=== PATIENT | female | born 1985 | race Caucasian/White ===

== ENCOUNTER 2020-01-30 04:56 | Inpatient (IN) | payer BC, SELFPAY ==
[2020-01-30] VITALS (170 sets, daily range): BP systolic 85–132; BP diastolic 50–92; PULSE 73–168; RESP 16; TEMP 36.5–37.7; O2SAT 97–100; BMI 30.7
--- NOTE | 2020-01-30 05:23 | LDADM ---
This patient, Anny Lau, was admitted to Labor/Delivery/Recovery 105 on 01/30/20 at 04:56. Plans for labor, pain management and were discussed with patient. Patient/family oriented to hospital policies and general routines including ID bracelet, bed and alarms, visiting hours, pain management, procedures, bathroom and other care routines, personal items, smoking policy, room service/diet and guest tray routines, infant security routines, and visiting hours. Patient/Family are encouraged to report perceived risks to care and to ask questions if they do not understand what they are told or what they should do. See OBIX for further documentation.
[2020-01-30] MEDS: LACTATED RINGERS 1,000 ML 125 ML IV CONT ×4 (05:30→18:23)
[2020-01-30] MEDS: OXYTOCIN 30 UNITS/NS 500 ML 30 UNITS/500 ML BAG IV CONT (05:30)
[2020-01-30 05:37] LABS: Basophils Percent Auto 0.3 % (0.2-1.2); Eosinophils Absolute Auto 0.3 K/mm3 (0-0.3); Eosinophils Percent Auto 2.6 % (0-4.4); Hematocrit 34.2 % (37.0-47.0); Hemoglobin 11.4 g/dL (12.0-15.0); Immature Granulocyte Absolute 0.15 K/mm3 (0.00-0.031); Immature Granulocyte Percent A 1.6 % (0-0.5); Lymphocytes Absolute Auto 2.03 K/mm3 (0.9-3.2); Lymphocytes Percent Auto 21.2 % (18.3-44.2); Mean Corpuscular HGB Conc 33.3 g/dl (32-36); Mean Corpuscular Hemoglobin 30.2 pg (26-34); Mean Corpuscular Volume 90.5 fl (80-100); Mean Platelet Volume 9.9 fl (7.4-10.4); Monocytes Absolute Auto 0.7 K/mm3 (0.1-0.6); Monocytes Percent Auto 7.1 % (2.6-8.5); Neutrophils Absolute Auto 6.4 K/mm3 (1.3-6.7); Neutrophils Percent Auto 67.2 % (45.5-73.1); Platelet Count Result 282 k/mm3 (150-375); Red Blood Count 3.78 M/mm3 (4.2-5.4); Red Cell Distribution Width 14.4 % (11.5-14.5); White Blood Count 9.6 K/mm3 (4.5-10.0)
--- NOTE | 2020-01-30 07:11 | PM.IMHP ---
H&P: HPI History of Present Illness Chief complaint: Induction of Labor Narrative: Anny Lau is a 34 year old female 022 whose last menstrual period was 05/02/2019, EDC is 02/06/2020, presents at 39 weeks gestation for induction of labor. She has an 8 week ultrasound an early visit confirming dates. Her has been uncomplicated. Her cervix is favorable. She agrees to proceed. Review of Systems Review of Systems: All systems reviewed & are unremarkable except as noted in HPI and below PMFSH Family History Family History Father Cerebrovascular accident Family history of hypercholesterolemia Hypertension Neuropathy Social History Social History Smoking status: Never smoker Alcohol intake: current Substance use: never Spiritual care concerns: No Meds Home Medications and Allergies Home Medications Medication Instructions Recorded Confirmed Type PNV cmb#95-ferrous fumarate-FA 1 tablet PO DAILY 01/14/20 01/14/20 History [] Allergies Allergy/AdvReac Type Severity Reaction Status Date / Time No Known Allergies Allergy Verified 01/14/20 13:37 Vital Signs Vital Signs - 24 hr 01/30/20 05:13 01/30/20 05:33 01/30/20 06:01 Temperature 97.7 F Pulse Rate 109 H 99 Blood Pressure 120/80 125/74 01/30/20 06:31 01/30/20 07:01 Temperature Pulse Rate 108 H 92 Blood Pressure 129/81 122/77 Exam Const: General: no acute distress Eyes: General: appearance normal, both eyes and all related structures Neck: Neck: supple and no JVD Thyroid: thyroid normal Resp: Effort & Inspection: normal respiratory effort Auscultation: clear to auscultation bilaterally Cardio: Rate: regular rate Rhythm: regular rhythm GI: Inspection: normal to inspection (Gravid soft uterus) : General: Yes other (Cervix 3/80%/-1. AROM clear. FHTs reassuring) External Female Exam: normal external appearance Skin: General skin exam: no rashes or lesions noted Extrem: General: normal to inspection and no edema Psych: Mental Status: mental status grossly normal Affect: normal affect H&P: Results Labs Labs: Short CBC 01/30/20 Range/Units 05:28 WBC 9.6 (4.5-10.0) K/mm3 Hgb 11.4 L (12.0-15.0) g/dL Hct 34.2 L (37.0-47.0) % Plt Count 282 (150-375) k/mm3 Assessment and Plan Additional Plan Impression: Term with favorable cervix Plan: Medical induction of labor. Spontaneous vaginal delivery is expected. She has an epidural candidate.
--- NOTE | 2020-01-30 08:02 | WPDANESEPPF ---
Anes - Initial Pre Proc Eval Date/Time: 01/30/20 08:02 Surgeon: Gaston Hicks MD Pre Op Diagnosis: Induction of Labor Patient Data Age: 34 Gender: F Height: 1.68 m Weight: 86.5 kg Last Vital Signs Temp 36.5 C 01/30/20 05:13 Pulse 86 01/30/20 08:01 BP 121/74 01/30/20 08:01 Pulse Ox 100 01/30/20 07:58 Allergies Allergy/AdvReac Type Severity Reaction Status Date / Time No Known Allergies Allergy Verified 01/14/20 13:37 Home Medications Medication Instructions Recorded Confirmed Type PNV cmb#95-ferrous fumarate-FA 1 tablet PO DAILY 01/14/20 01/14/20 History [] Laboratory Tests 01/30/20 01/30/20 01/30/20 05:28 05:28 05:28 WBC 9.6 K/mm3 K/mm3 (4.5-10.0) RBC 3.78 M/mm3 L M/mm3 (4.2-5.4) Hgb 11.4 g/dL L g/dL (12.0-15.0) Hct 34.2 % L % (37.0-47.0) MCV 90.5 fl fl (80-100) MCH 30.2 pg pg (26-34) MCHC 33.3 g/dl g/dl (32-36) RDW 14.4 % % (11.5-14.5) Plt Count 282 k/mm3 k/mm3 (150-375) MPV 9.9 fl fl (7.4-10.4) Immature Gran % (Auto) 1.6 % H % (0-0.5) Neut % (Auto) 67.2 % % (45.5-73.1) Lymph % (Auto) 21.2 % % (18.3-44.2) [place] % (Auto) 7.1 % % (2.6-8.5) Eos % (Auto) 2.6 % % (0-4.4) Baso % (Auto) 0.3 % % (0.2-1.2) Lymph # (Auto) 2.03 K/mm3 K/mm3 (0.9-3.2) [place] # (Auto) 0.7 K/mm3 H K/mm3 (0.1-0.6) Eos # (Auto) 0.3 K/mm3 K/mm3 (0-0.3) Baso # (Auto) 0.0 K/mm3 K/mm3 (0.0-0.1) Abs Immat Gran (auto) 0.15 K/mm3 H K/mm3 (0.00-0.031) Absolute Neuts (auto) 6.4 K/mm3 K/mm3 (1.3-6.7) Absolute Nucleated RBC 0.0 K/mm3 K/mm3 (0.0-0.012) Nucleated RBC % 0.0 % % (0.0-0.2) RPR Pending Blood Type O Positive Antibody Screen Negative Patient hx anesthesia problems: none Family hx anesthesia problems: none PMFSH Family History Family History Father Cerebrovascular accident Family history of hypercholesterolemia Hypertension Neuropathy Social History Social History Smoking status: Never smoker Alcohol intake: current Substance use: never Spiritual care concerns: No Anes - Eval Final PreProcedure Day of Procedure 01/30/20 08:02 Patient weight: overweight Heart: regular rate and rhythm Lungs: clear to auscultation and normal air movement Airway: Mallampati scale class II Neurological: alert and oriented Last oral intake: >/= 8 hours ASA classification: II Emergent: no Anesthetic plan: proceed Anesthesia type and monitoring: regional epidural Informed Consent: The patient's anesthetic plan and its attendant risks and benefits were discussed with the patient/family/POA. Questions were solicited and answers provided to the satisfaction of the patient/family/POA.
[2020-01-30 10:24] LABS: Rapid Plasma Reagin Non-Reactive (NonReactive)
--- NOTE | 2020-01-30 11:58 | PM.OBPNVD ---
OB - PN: Subj Subjective Date/time seen: 01/30/20 11:58 cx 5.5 by rn exam fhts reassuring epidural working OB - PN: Obj Data Labs CBC & Chem 7: 01/30/20 05:28 Labs: Laboratory Results - last 24 hr 01/30/20 01/30/20 01/30/20 05:28 05:28 05:28 WBC 9.6 RBC 3.78 L Hgb 11.4 L Hct 34.2 L MCV 90.5 MCH 30.2 MCHC 33.3 RDW 14.4 Plt Count 282 MPV 9.9 Immature Gran % (Auto) 1.6 H Neut % (Auto) 67.2 Lymph % (Auto) 21.2 [place] % (Auto) 7.1 Eos % (Auto) 2.6 Baso % (Auto) 0.3 Lymph # (Auto) 2.03 [place] # (Auto) 0.7 H Eos # (Auto) 0.3 Baso # (Auto) 0.0 Abs Immat Gran (auto) 0.15 H Absolute Neuts (auto) 6.4 Absolute Nucleated RBC 0.0 Nucleated RBC % 0.0 RPR Non-reactive Blood Type O Positive Antibody Screen Negative OB - PN A/P Time Spent With Patient Time: Total time spent is greater than 50% in coordination of care (as documented) at patient's floor/unit and/or counseling patient:
--- NOTE | 2020-01-30 16:22 | P.PNOB_ITS ---
OB - PN: Subj Subjective Date/time seen: 01/30/20 16:22 cx rim fhts reassuring OB - PN: Obj Data Labs CBC & Chem 7: 01/30/20 05:28 Labs: Laboratory Results - last 24 hr 01/30/20 01/30/20 01/30/20 05:28 05:28 05:28 WBC 9.6 RBC 3.78 L Hgb 11.4 L Hct 34.2 L MCV 90.5 MCH 30.2 MCHC 33.3 RDW 14.4 Plt Count 282 MPV 9.9 Immature Gran % (Auto) 1.6 H Neut % (Auto) 67.2 Lymph % (Auto) 21.2 [place] % (Auto) 7.1 Eos % (Auto) 2.6 Baso % (Auto) 0.3 Lymph # (Auto) 2.03 [place] # (Auto) 0.7 H Eos # (Auto) 0.3 Baso # (Auto) 0.0 Abs Immat Gran (auto) 0.15 H Absolute Neuts (auto) 6.4 Absolute Nucleated RBC 0.0 Nucleated RBC % 0.0 RPR Non-reactive Blood Type O Positive Antibody Screen Negative OB - PN A/P Time Spent With Patient Time: Total time spent is greater than 50% in coordination of care (as documented) at patient's floor/unit and/or counseling patient:
[2020-01-30] MEDS: ONDANSETRON INJ 4 MG/2 ML VIAL IV PUSH (18:12)
--- NOTE | 2020-01-30 20:41 | PM.OBPRVD ---
OB - Delivery Note Procedure Delivery date: 01/30/20 Procedure: mil Intrapartal events: None Induction method: AROM Delivery augmentation: pitocin Delivery monitor: external FHT Route of delivery: Episiotomy description: None Laceration description: Perineal - 1st Degree Delivery repair: vicryl Specimen: No Estimated blood loss (mL): 257 Anesthesia type: Epidural Disposition: floor Baby Date of : 01/30/20 Time of : 20:27 Weeks of gestation at delivery: 39 Infant gender: Male Weight (pounds): 8 Weight (ounces): 4 presentation: vertex position: Left Occiput Anterior Placenta delivery description: Spontaneous cord vessel description: 3 Vessels, Nuchal Cord and Loose score one minute: 9 score five minutes: 9
[2020-01-30] MEDS: OXYTOCIN 30 UNITS/NS 500 ML 30 UNITS/500 ML BAG 125 UNITS IV CONT (20:49)
[2020-01-30] MEDS: IBUPROFEN 600 MG TABLET PO (22:07)
[2020-01-30] MEDS: WITCH HAZEL 40 PADS 1 PAD TOPICAL (22:08)
[2020-01-30] MEDS: BENZOCAINE 20% AER SPR (*SP) 56 GM CAN 1 SPRAY TOPICAL (22:08)
[2020-01-31 05:40] LABS: Hematocrit 31.7 % (37.0-47.0); Hemoglobin 10.3 g/dL (12.0-15.0)
[2020-01-31] MEDS: IBUPROFEN 600 MG TABLET PO ×3 (05:48→18:30)
--- NOTE | 2020-01-31 06:56 | PM.DS ---
DS: Admitting Diagnosis Admitting Diagnosis Admitting Diagnosis: term iup DS: Summary Time Spent with Patient Time attestation: Total time spent providing and/or coordinating discharge services: Exam Const: General: no acute distress Eyes: General: appearance normal, both eyes and all related structures Neck: Neck: supple and no JVD Thyroid: thyroid normal Resp: Effort & Inspection: normal respiratory effort Auscultation: clear to auscultation bilaterally Cardio: Rate: regular rate Rhythm: regular rhythm GI: Inspection: non-distended GI Palp: Yes Soft to palpation, No Tenderness to palpation present (GI) and No Guarding due to palpation present (GI) Auscultation: normal bowel sounds : General: Yes bladder normal to palpation External Female Exam: normal external appearance Speculum Exam - Vagina: normal vaginal discharge and No vaginal bleeding Speculum Exam - Cervix: nontender Bimanual exam- vagina & uterus: bladder normal to palpation and No Cervical tenderness present OB/external & speculum: No vaginal bleeding Skin: General skin exam: no rashes or lesions noted Extrem: General: normal to inspection and no edema Psych: Mental Status: mental status grossly normal Affect: normal affect DS: Data Data Completed and Pending Labs on day of discharge: Labs from last 24 hours 01/31/20 01/30/20 04:52 05:28 Hgb 10.3 L Hct 31.7 L RPR Non-reactive Discharge Plan Discharge Attending physician on discharge: Gaston Hicks Discharging Clinician: Gaston Hicks Patient Disposition: Home, Self-Care Activity: may shower, no straining and pelvic rest Diet: heart healthy Patient Instructions: Antibiotic Form Stand Alone Forms: General Discharge Information Follow-up/Referrals: Gaston Hicks MD [Physician] - Discharge Medications: Continued PNV cmb#95-ferrous fumarate-FA [] 28 mg iron- 800 mcg Tablet 1 tablet PO DAILY RF: 0 Date of admission: 01/30/20 04:56 Primary Care Provider: CariJavier Admitting Provider: Gaston Hicks Attending physician on admission: Gaston Hicks
--- NOTE | 2020-01-31 06:56 | PM.OBPNVD ---
OB - PN: Subj Subjective Date/time seen: 01/31/20 06:56 OB - PN: Obj Data Labs CBC & Chem 7: 01/31/20 04:52 Labs: Laboratory Results - last 24 hr 01/30/20 01/31/20 05:28 04:52 Hgb 10.3 L Hct 31.7 L RPR Non-reactive OB - PN A/P Plan day: 1 Plan: routine care Time Spent With Patient Time: Total time spent is greater than 50% in coordination of care (as documented) at patient's floor/unit and/or counseling patient: Time with patient: less than 15 minutes Review of Systems Review of Systems: All systems reviewed & are unremarkable except as noted in HPI and below Exam Const: General: no acute distress Eyes: General: appearance normal, both eyes and all related structures Neck: Neck: supple and no JVD Thyroid: thyroid normal Resp: Effort & Inspection: normal respiratory effort Auscultation: clear to auscultation bilaterally Cardio: Rate: regular rate Rhythm: regular rhythm GI: Inspection: non-distended GI Palp: Yes Soft to palpation, No Tenderness to palpation present (GI) and No Guarding due to palpation present (GI) Auscultation: normal bowel sounds : General: Yes bladder normal to palpation External Female Exam: normal external appearance Speculum Exam - Vagina: normal vaginal discharge and No vaginal bleeding Speculum Exam - Cervix: nontender Bimanual exam- vagina & uterus: bladder normal to palpation and No Cervical tenderness present OB/external & speculum: No vaginal bleeding Skin: General skin exam: no rashes or lesions noted Extrem: General: normal to inspection and no edema Psych: Mental Status: mental status grossly normal Affect: normal affect
[2020-01-31 08:15] VITALS: BP 108/71; PULSE 80; RESP 18; TEMP 37; O2SAT 100
[2020-01-31] MEDS: MULTIVIT/MIN/PREN/FOL AC/IRON TABLET 1 TAB PO (08:29)
[2020-01-31] MEDS: ACETAMINOPHEN 325 MG TABLET 650 MG PO ×2 (08:30→15:11)
--- NOTE | 2020-01-31 14:24 | WPDANLDPN2 ---
Anes-Prog Note L&D Date/Time: 01/31/20 14:24 Comfortable throughout: labor and delivery Neuraxial method: epidural Epidural/Spinal procedure site: tender (heating pad in use) Neuro status: Neuro function grossly intact. Cardiovascular status: normal Respiratory status: normal Airway patency: baseline Mental status: baseline Post-Op hydration status: normal Vital Signs: Last Vital Signs Temp 98.6 F 01/31/20 08:15 Pulse 80 01/31/20 08:15 Resp 18 01/31/20 08:15 BP 108/71 01/31/20 08:15 Pulse Ox 100 01/31/20 08:15 I/O: Intake & Output 01/30/20 01/31/20 01/31/20 23:59 07:59 15:59 Intake Total 2000 Output Total 78 Balance 1922 Patient feedback: Patient satisfied with anesthetic care. states epidural was turned off while laboring because she 'was not feeling anything but then felt everything during delivery
[2020-01-31 18:35] VITALS: BP 107/61; PULSE 83; RESP 16; TEMP 36.8
[2020-02-01] MEDS: IBUPROFEN 600 MG TABLET PO (05:25)
--- NOTE | 2020-02-01 06:46 | PM.OBPNVD ---
OB - PN: Subj Subjective Date/time seen: 02/01/20 06:46 Patient comments: no complaints and pain well controlled baby status: doing well and nursing well OB - PN: Obj Data Labs CBC & Chem 7: 01/31/20 04:52 OB - PN A/P Plan day: 2 Plan: routine care, discharge home and follow up 6 weeks Time Spent With Patient Time: Total time spent is greater than 50% in coordination of care (as documented) at patient's floor/unit and/or counseling patient: Time with patient: less than 15 minutes Review of Systems Review of Systems: All systems reviewed & are unremarkable except as noted in HPI and below Exam Const: General: no acute distress Eyes: General: appearance normal, both eyes and all related structures Neck: Neck: supple and no JVD Thyroid: thyroid normal Resp: Effort & Inspection: normal respiratory effort Auscultation: clear to auscultation bilaterally Cardio: Rate: regular rate Rhythm: regular rhythm GI: Inspection: non-distended GI Palp: Yes Soft to palpation, No Tenderness to palpation present (GI) and No Guarding due to palpation present (GI) Auscultation: normal bowel sounds : General: Yes bladder normal to palpation External Female Exam: normal external appearance Speculum Exam - Vagina: normal vaginal discharge and No vaginal bleeding Speculum Exam - Cervix: nontender Bimanual exam- vagina & uterus: bladder normal to palpation and No Cervical tenderness present OB/external & speculum: No vaginal bleeding Skin: General skin exam: no rashes or lesions noted Extrem: General: normal to inspection and no edema Psych: Mental Status: mental status grossly normal Affect: normal affect
[2020-02-01 08:00] VITALS: BP 115/78; PULSE 71; RESP 18; TEMP 36.8
--- NOTE | 2020-02-01 08:30 | PC.NURSE ---
Patient instructed on viewing the discharge video Mother & Baby Care, The First Two Weeks . Patient was given the opportunity and encouraged to ask questions. Patient verbalized understanding of information shared and has been given the mother/baby guide for home reference.
[2020-02-01] MEDS: TETANUS,DIPHTHERIA,AC PERTUSSIS ADULT (0.5 ML) BOOSTRIX IM (08:31)
[2020-02-02 08:45] VITALS: BP 109/77; PULSE 77; RESP 16; TEMP 37; O2SAT 99
== END 2020-02-01 11:09 | disposition home or self-care (01) | DRG 807 ==
LOC: ANHLDR 05:16 → ANHOB2 22:51
PROVIDERS: Admitting Provider Obstetrics & Gynecology; PCP Physician Assistant; Visit Provider Obstetrics & Gynecology
DX: O69.81X0 Labor and delivery complicated by cord around neck, without compression, not applicable or unspecified (principal); Z37.0 Single live birth; Z3A.39 39 weeks gestation of pregnancy; O70.0 First degree perineal laceration during delivery
CPT/HCPCS: 36415; 85014; 85018; 85025; 86592; 86850; 86900; 86901; 90715; A9270; J2405; J2590; J2795; J7120

== ENCOUNTER 2020-02-18 15:24 | Outpatient (CLI) | payer BC, SELFPAY ==
--- NOTE | ~2020-02-18 | US_ITS ---
EXAMINATION: US venous doppler LE RT EXAM DATE: 02/18/2020 16:16 INDICATION: Right leg swelling. TECHNIQUE: Multiple grayscale, color flow and Doppler images of the right lower extremity deep venous system were obtained and reviewed. There is no prior study for comparison. FINDINGS: The right common femoral, femoral and profunda veins demonstrate normal color flow, respira tory variation, augmentation and compressibility. Compressibility, color flow confirmed within the r ight popliteal, posterior tibial, peroneal, and greater saphenous veins. IMPRESSION: 1. No right lower extremity deep venous thrombosis. Reviewed, dictated and finalized at location A.
== END 2020-02-18 15:25 | disposition home or self-care (01) ==
LOC: ANHIMG 15:28
PROVIDERS: PCP Physician Assistant; Visit Provider Obstetrics & Gynecology
DX: R22.41 Localized swelling, mass and lump, right lower limb (principal)
CPT/HCPCS: 93971

== ENCOUNTER → 2020-04-01 07:54 | Outpatient (CLI) | payer BC, SELFPAY ==
--- NOTE | ~2020-04-01 | XR_ITS ---
EXAMINATION:XR cervical spine min 6V DATE: 04/01/2020 08:25 INDICATION: Neck pain TECHNIQUE: AP, lateral in neutral, flexion, extension, bilateral oblique, lateral swimmers and odonto id views of the cervical spine are provided. COMPARISON: None FINDINGS: Alignment is normal. There is no laxity with flexion or extension. There is straightening o f the cervical spine which can be positional or due to muscular spasm. The odontoid is intact. No fra cture is identified. The vertebral body heights are normal. There is mild loss of intervertebral disc space height at C4-5 and C5-6. Prevertebral soft tissues are normal. IMPRESSION: 1. Mild cervical spondylosis without acute findings. Reviewed, dictated and finalized at location A.
== END ==
DX: S13.4XXA Sprain of ligaments of cervical spine, initial encounter (principal); S16.1XXA Strain of muscle, fascia and tendon at neck level, initial encounter; X58.XXXA Exposure to other specified factors, initial encounter; M47.22 Other spondylosis with radiculopathy, cervical region
CPT/HCPCS: 72052

== ENCOUNTER → 2020-04-14 14:46 | Outpatient (CLI) | payer BC, SELFPAY ==
--- NOTE | ~2020-04-14 | MR_ITS ---
EXAMINATION: MR cervical spine wo con EXAM DATE: 04/14/2020 15:25 INDICATION: Neck pain, bilateral arm and leg numbness/pain. Tree limb fell on neck. TECHNIQUE: Multi-sequential, multiplanar MR images of the cervical spine were obtained without contra st. Axial T2, axial T2 MERGE sequence. Sagittal T1, T2, T2 fat saturation images also obtained. Th ere is no prior study for comparison. FINDINGS: There is mild disc disease C4-7. The vertebral body and disc heights are otherwise well ma intained. The vertebral bodies are aligned in the AP dimension. The spinal cord signal intensity and intrinsic morphology is normal. Cervicomedullary junction is normal in appearance. There are no suspi cious marrow signal abnormalities. Paraspinal soft tissue is unremarkable. There is mild thyromegaly without focal nodule. Level by level evaluation: C2-C3: Disc does not extend beyond the endplate margin. Uncovertebral joint arthropathy: None. Facet joint arthropathy: None. Neural foraminal stenosis: No stenosis. Central canal stenosis: No stenosis. C3-C4: Disc does not extend beyond the endplate margin. Uncovertebral joint arthropathy: Minimal left. Facet joint arthropathy: None. Neural foraminal stenosis: No stenosis. Central canal stenosis: No stenosis. C4-C5: There is a minimal diffuse disc bulge. Uncovertebral joint arthropathy: Mild to moderate left, mild right. Facet joint arthropathy: Minimal bilateral. Neural foraminal stenosis: No stenosis. Central canal stenosis: No stenosis. C5-C6: There is a minimal diffuse disc bulge. Uncovertebral joint arthropathy: Mild bilateral. Facet joint arthropathy: Minimal bilateral. Neural foraminal stenosis: No stenosis. Central canal stenosis: No stenosis. C6-C7: There is a minimal diffuse disc bulge. Uncovertebral joint arthropathy: Mild bilateral. Facet joint arthropathy: Minimal bilateral. Neural foraminal stenosis: Mild left. Central canal stenosis: Minimal. C7-T1: Disc does not extend beyond the endplate margin. Uncovertebral joint arthropathy: None. Facet joint arthropathy: Minimal. Neural foraminal stenosis: No stenosis. Central canal stenosis: No stenosis. IMPRESSION: Mild cervical spondylosis. Reviewed, dictated and finalized at location A. IMPRESSION: Mild cervical spondylosis.
== END ==
DX: S13.4XXA Sprain of ligaments of cervical spine, initial encounter (principal); M54.12 Radiculopathy, cervical region; W20.8XXA Other cause of strike by thrown, projected or falling object, initial encounter; M47.22 Other spondylosis with radiculopathy, cervical region
CPT/HCPCS: 72141

== ENCOUNTER 2021-09-14 16:50 | Outpatient (CLI) | payer BC, SELFPAY ==
--- NOTE | ~2021-09-14 | XR_ITS ---
XR chest 2V DATE: 09/14/2021 17:17 INDICATION: Mid chest pain since Covid infection in early August TECHNIQUE: PA and lateral views COMPARISON: 08/23/2018 2 view chest FINDINGS: Normal heart size. No hilar or mediastinal enlargement. No pulmonary infiltrate or consolid ation, pleural effusion or pulmonary vascular congestion or pneumothorax. Minimal thoracic and lumbar scoliosis. IMPRESSION: No active cardiopulmonary disease Reviewed, dictated and finalized at location B. COLLECTOR
[2021-09-14 17:43] LABS: Basophils Percent Auto 0.5 % (0.2-1.2); Eosinophils Absolute Auto 0.1 K/mm3 (0-0.3); Eosinophils Percent Auto 1.7 % (0-4.4); Hematocrit 40.1 % (37.0-47.0); Hemoglobin 13.7 g/dL (12.0-15.0); Immature Granulocyte Absolute 0.02 K/mm3 (0.00-0.031); Immature Granulocyte Percent A 0.3 % (0-0.5); Lymphocytes Absolute Auto 2.43 K/mm3 (0.9-3.2); Lymphocytes Percent Auto 31.4 % (18.3-44.2); Mean Corpuscular HGB Conc 34.2 g/dl (32-36); Mean Corpuscular Hemoglobin 31.9 pg (26-34); Mean Corpuscular Volume 93.3 fl (80-100); Mean Platelet Volume 9.6 fl (7.4-10.4); Monocytes Absolute Auto 0.8 K/mm3 (0.1-0.6); Monocytes Percent Auto 9.9 % (2.6-8.5); Neutrophils Absolute Auto 4.4 K/mm3 (1.3-6.7); Neutrophils Percent Auto 56.2 % (45.5-73.1); Platelet Count Result 301 k/mm3 (150-375); Red Cell Distribution Width 12.4 % (11.5-14.5); White Blood Count 7.8 K/mm3 (4.5-10.0)
[2021-09-14 17:55] LABS: D Dimer 0.34 ug/mL (<0.48)
[2021-09-14 17:56] LABS: Alanine Aminotransferase 21 U/L (4-35); Albumin Level 4.7 g/dL (3.5-5.1); Alkaline Phosphatase 41 U/L (38-126); Anion Gap 6 mmol/L (8-16); Aspartate Amino Transferase 26 U/L (14-36); Bilirubin,Total 0.4 mg/dL (0.2-1.3); Blood Urea Nitrogen 19 mg/dL (7-17); Calcium 9.3 mg/dL (8.4-10.2); Carbon Dioxide 26 mmol/L (22-30); Chloride 102 mmol/L (98-107); Estimated Glomerular Filt Rate > 60; Glucose 104 mg/dL (65-110); Potassium 4.2 mmol/L (3.4-5.0); Sodium 134 mmol/L (137-145)
== END 2021-09-14 16:51 | disposition home or self-care (01) ==
PROVIDERS: PCP Physician Assistant; Visit Provider Physician Assistant
DX: R07.81 Pleurodynia (principal); Z86.16 Personal history of COVID-19
CPT/HCPCS: 36415; 71046; 80053; 85025; 85380

== ENCOUNTER 2022-07-29 12:02 | Emergency (ER) | payer BC, SELFPAY ==
[2022-07-29 12:18] VITALS: BP 134/98; PULSE 98; RESP 20; TEMP 36.6; O2SAT 100
--- NOTE | 2022-07-29 12:40 | ED.HA ---
HPI - Headache General Chief Complaint: Headache Stated Complaint: headache Time Seen by Provider: 07/29/22 12:42 Source: patient, RN notes reviewed and old records reviewed Mode of arrival: ambulatory Limitations: no limitations History of Present Illness HPI Narrative: 36 year old female presents to the [facility] with complaints of a frontal headache since waking up this morning. Denies fevers. Denies any blurry vision or change in vision. No weakness, no neuro deficits. Walking with a normal gait. Denies any nausea vomiting or diarrhea. Patient does have a sensitivity to light and sound. Denies any history MD elicited complaint: headache Related Data Home Medications Medication Instructions Recorded Confirmed escitalopram oxalate 20 mg tablet 20 mg PO DAILY 07/29/22 07/29/22 Allergies Allergy/AdvReac Type Severity Reaction Status Date / Time No Known Allergies Allergy Verified 01/14/20 13:37 Review of Systems Review of Systems: All systems reviewed & are unremarkable except as noted in HPI and below Constitutional: Constitutional: Reports as per HPI and Reports headache(s) (frontal) Eyes: Eyes: Reports no additional eye complaints ENT: Reports system reviewed and no additional complaints, except as documented Cardiovascular: Cardiovascular: Reports no additional cardiovascular complaints, Denies chest pain and Denies dyspnea Respiratory: Respiratory: Reports no additional respiratory complaints, Denies chest congestion, Denies cough and Denies dyspnea Gastrointestinal: Gastrointestinal: Reports no additional gastrointestinal complaints, Denies abdominal pain, Denies nausea and Denies vomiting Musculoskeletal: Musculoskeletal: Reports no additional musculoskeletal complaints Integumentary/Breasts: Skin/Breast: Reports system reviewed and no additional complaints, except as docu Neurologic: Reports system reviewed and no additional complaints, except as documented Psychiatric: Psychiatric: Reports no additional psychiatric complaints Allergic/Immunologic: Allergic/Immunologic: Reports no additional allergic/immunologic complaints [facility] Family History Family History Father Cerebrovascular accident Family history of hypercholesterolemia Hypertension Neuropathy Social History Social History Smoking status: Never smoker Alcohol intake: current Substance use: never Spiritual care concerns: No Comments At the time of my signature, I reviewed and agree with the nursing past medical, surgical, social, and family history. There is no relevant family history pertinent to the patient complaint. Exam Const: General: cooperative, healthy appearing, well developed, alert, in distress mild (pain), uncomfortable, well groomed and well nourished Nutritional Appearance: well nourished Orientation/consciousness: patient oriented x3 Limitations: no limitations HENMT: Head: normal to inspection Ears: hearing grossly normal bilaterally and external ears normal Face/Nose/Sinus: Normal external nose present, Normal nares present, Normal nasal mucous membranes and turbinates present and normal facial exam Face and sinus: normal facial exam Mouth: Yes Normal oral and palatal mucosa present, Yes lip normal and Yes moist mucous membranes Throat: posterior oropharynx normal and uvula midline Eyes: General: appearance normal, both eyes and all related structures Visual Lopes: normal visual lopes by confrontation Alignment and Position: alignment normal Periorbital: periorbital findings normal Eyelids: eyelids normal Conjunctivae: conjunctivae normal Sclera: sclerae normal Cornea: corneas normal Pupils: Equal, round and reactive pupils present and Pupils normal by confrontation EOM: EOMs intact bilaterally Neck: Neck: normal visual inspection, full ROM, no lymphadenopathy and no meninge
== END 2022-07-29 13:37 | disposition home or self-care (01) ==
PROVIDERS: Emergency Provider Nurse Practitioner; PCP Physician Assistant
DX: R51.9 Headache, unspecified (principal); Z20.822 Contact with and (suspected) exposure to COVID-19
CPT/HCPCS: 87426; 87804; 99213; C9803; G0463

== ENCOUNTER 2022-07-29 17:06 | Emergency (ER) | payer BC, SELFPAY ==
--- NOTE | ~2022-07-29 | CT_ITS ---
EXAMINATION: CT brain wo con DATE: 07/29/2022 20:40 INDICATION: Acute headache. TECHNIQUE: Computed tomography (CT) of the head was performed without intravenous contrast. The mA wa s adjusted according to patient size. Iterative reconstruction technique was employed. The dose-lengt h product was 605.33 mGy-cm. COMPARISON: None FINDINGS: There is no intracranial hemorrhage, acute infarction, or abnormal intracranial mass lesion . The ventricles are normal in size. The orbits are normal. There is mild mucosal thickening in the p aranasal sinuses. The mastoid air cells are normal. IMPRESSION: 1. Normal brain. Reviewed, dictated and finalized at location A. [employer] IMPRESSION: 1. Normal brain.
[2022-07-29 17:23] VITALS: BP 143/97; PULSE 101; RESP 16; TEMP 37.2; O2SAT 100
--- NOTE | 2022-07-29 19:51 | PC.NURSE ---
pt c/o little x 12 hours states she went to urgent care and was prescribed fioricet and it is not working. also c/o nausea.
--- NOTE | 2022-07-29 19:57 | ED.HA ---
HPI - Headache General Chief Complaint: Headache Stated Complaint: GEORGE NEG COVID FLU Time Seen by Provider: 07/29/22 19:48 Source: patient, RN notes reviewed and old records reviewed Mode of arrival: ambulatory Limitations: no limitations History of Present Illness HPI Narrative: This is a 36 year old female who presents for evaluation of acute headache. She reports she developed headache at 3-4 am this morning. She reports her head started suddenly and it was severe. She reports her headache was 10/10 at onset but it has gotten worse throughout the day. She develop associated nausea 2 hours ago. Her headache is worse with light, sound and movement. She was evaluated at [facility] hours ago and she was prescribed fiorcet. She took a dose at 2 pm but she reports no relief. She took tylenol last night for her headache. She denies history of migraines. She is reporting 1 week of sinus congestion. Related Data Home Medications Medication Instructions Recorded Confirmed escitalopram oxalate 20 mg tablet 20 mg PO DAILY 07/29/22 07/29/22 Allergies Allergy/AdvReac Type Severity Reaction Status Date / Time No Known Allergies Allergy Verified 01/14/20 13:37 Review of Systems Review of Systems: All systems reviewed & are unremarkable except as noted in HPI and below Constitutional: Constitutional: Denies fatigue and Denies fever(s) Eyes: Eyes: Denies blurry vision and Reports photophobia ENT: Reports nasal congestion and Denies sinus pressure Cardiovascular: Cardiovascular: Denies chest pain, Denies rapid heart rate, Denies leg edema and Denies dyspnea Respiratory: Respiratory: Denies hemoptysis and Denies dyspnea Gastrointestinal: Gastrointestinal: Denies abdominal pain, Denies melena and Reports nausea Musculoskeletal: Musculoskeletal: Denies numbness Neurologic: Denies Abnormal speech present, Reports headache(s), Denies focal weakness and Denies numbness Endocrine: Endocrine: Denies fatigue [facility] Past Medical History Medical History (Updated 07/30/22 @ 00:00 by Alecia Spring) Anxiety Depression Family History Family History Father Cerebrovascular accident Family history of hypercholesterolemia Hypertension Neuropathy Social History Social History Smoking status: Never smoker Alcohol intake: current Substance use: never Spiritual care concerns: No Exam Const: General: alert Nutritional Appearance: well nourished Orientation/consciousness: patient oriented x3 Limitations: no limitations Other: patient laying in dark room covering her eyes HENMT: Head: normal to inspection Ears: external ears normal and TM's normal bilaterally Face/Nose/Sinus: Normal external nose present Face and sinus: normal facial exam Eyes: Conjunctivae: conjunctivae normal Pupils: Equal, round and reactive pupils present Direct Ophthalmoscopy: photophobia Neck: Neck: normal visual inspection Chest: Chest palpation & inspection: normal inspection of the chest Resp: Effort & Inspection: normal respiratory effort Auscultation: clear to auscultation bilaterally Cardio: Rate: regular rate Rhythm: regular rhythm Heart sounds: no murmurs GI: GI Palp: Yes Soft to palpation, No Tenderness to palpation present (GI), No Guarding due to palpation present (GI) and No Rigid due to palpation Auscultation: normal bowel sounds Skin: General skin exam: normal color Rashes: no rashes Wounds: no wounds Neuro: General: patient oriented x3, moves all extremities and CN's II-XI intact bilaterally Cranial nerves: Yes Nystagmus not present Speech: normal speech Gait exam (Neuro): Normal gait present Extrem: General: normal to inspection Psych: Mental Status: mental status grossly normal Affect: normal affect Attitude: cooperative Course Reevaluation(s) Reevaluation #1: Patient
[2022-07-29] MEDS: SODIUM CHLORIDE 0.9% IV 1,000 ML 999 ML IV CONT ×2 (20:13→21:22)
[2022-07-29] MEDS: METOCLOPRAMIDE HCL INJ 10 MG/2 ML VIAL IV PUSH (20:16)
[2022-07-29] MEDS: diphenhydrAMINE HCl INJ 50 MG/ML VIAL 25 MG IV PUSH (20:16)
[2022-07-29] MEDS: KETOROLAC 30 MG/ML VIAL (*BKC) IV PUSH (20:17)
[2022-07-29 20:18] LABS: Basophils Percent Auto 0.3 % (0.2-1.2); Eosinophils Absolute Auto 0.2 K/mm3 (0-0.3); Eosinophils Percent Auto 2.6 % (0-4.4); Hematocrit 39.9 % (37.0-47.0); Hemoglobin 13.2 g/dL (12.0-15.0); Immature Granulocyte Absolute 0.03 K/mm3 (0.00-0.031); Immature Granulocyte Percent A 0.3 % (0-0.5); Lymphocytes Absolute Auto 3.33 K/mm3 (0.9-3.2); Lymphocytes Percent Auto 37.9 % (18.3-44.2); Mean Corpuscular HGB Conc 33.1 g/dl (32-36); Mean Corpuscular Hemoglobin 30.6 pg (26-34); Mean Corpuscular Volume 92.6 fl (80-100); Mean Platelet Volume 8.8 fl (7.4-10.4); Monocytes Absolute Auto 0.6 K/mm3 (0.1-0.6); Monocytes Percent Auto 6.6 % (2.6-8.5); Neutrophils Absolute Auto 4.6 K/mm3 (1.3-6.7); Neutrophils Percent Auto 52.3 % (45.5-73.1); Platelet Count Result 342 k/mm3 (150-375); Red Blood Count 4.31 M/mm3 (4.2-5.4); Red Cell Distribution Width 12.2 % (11.5-14.5); White Blood Count 8.8 K/mm3 (4.5-10.0)
[2022-07-29 20:28] LABS: Alanine Aminotransferase 47 U/L (6-35); Albumin Level 4.7 g/dL (3.5-5.1); Alkaline Phosphatase 66 U/L (38-126); Anion Gap 7 mmol/L (8-16); Aspartate Amino Transferase 54 U/L (14-36); Bilirubin,Total 0.4 mg/dL (0.2-1.3); Blood Urea Nitrogen 16 mg/dL (7-17); Calcium 8.8 mg/dL (8.4-10.2); Carbon Dioxide 29 mmol/L (22-30); Chloride 101 mmol/L (98-107); Estimated CRCL calculation 101 ml/min; Estimated Glomerular Filt Rate > 60; Glucose 87 mg/dL (65-110); Sodium 137 mmol/L (137-145)
[2022-07-29] MEDS: methylPREDNISolone SOD SUCC 125 MG VIAL IV PUSH (21:49)
[2022-07-29] MEDS: diazePAM (*CRX) 5 MG TABLET PO (21:59)
== END 2022-07-29 23:24 | disposition home or self-care (01) ==
PROVIDERS: Emergency Provider General Practice; PCP Physician Assistant
DX: R51.9 Headache, unspecified (principal); F41.9 Anxiety disorder, unspecified; F32.A Depression, unspecified
CPT/HCPCS: 36415; 70450; 80053; 81025; 85025; 96361; 96365; 96375; 99284; A9270; J0131; J1200; J1885; J2765; J2930; J7030

== ENCOUNTER 2022-11-18 11:14 | Outpatient (CLI) | payer BC, SELFPAY ==
--- NOTE | ~2022-11-18 | US_ITS ---
US venous doppler [facility] DATE: 11/18/2022 11:45 INDICATION: Left calf pain TECHNIQUE: Real-time and color flow imaging and Doppler analysis of the left lower extremity veins COMPARISON: None FINDINGS: Left greater saphenous vein is patent. There is spontaneous and phasic flow and normal augm entation and color flow signal and normal compression of the deep veins of the left lower extremity. IMPRESSION: No evidence of deep venous thrombosis of the left leg Reviewed, dictated and finalized at Location A. Reviewed, dictated and finalized at location L.
== END 2022-11-18 11:15 | disposition home or self-care (01) ==
PROVIDERS: PCP Physician Assistant; Visit Provider Physician Assistant
DX: M79.662 Pain in left lower leg (principal)
CPT/HCPCS: 93971